=== PATIENT | male | born 1945 | race Caucasian/White ===

== ENCOUNTER 2021-06-28 03:40 | Emergency (ER) | payer MEDICARE ==
[~2021-06-28] VITALS: Ht 188 cm; Wt 108.9 kg
--- NOTE | 2021-06-28 04:02 | ED Cough/URI ---
General Chief Complaint: COVID19 Suspect/Confirmed Stated Complaint: LIGHTHEADED,BODY ACHES,COUGH Source: patient History of Present Illness Date Seen by Provider: Jun 28, 2021 Time Seen by Provider: 03:53 Initial Comments PT ARRIVES VIA POV FROM HOME C/O BODY ACHES, NON-PRODUCTIVE COUGH, CHILLS, LIGHTHEADEDNESS, GENERALIZED WEAKNESS, SLIGHT HEADACHE SYMPTOMS BEGAN 3-4 DAYS AGO HAS NOT TAKEN ANYTHING FOR HIS SYMPTOMS PT IS EATING AND DRINKING WELL. 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 HAS NOT SOUGHT CARE UNTIL TONIGHT SYMPTOMS NO DIFFERENT TONIGHT PCP: DR. DUNN Allergies and Home Medications Patient Home Medication List Home Medication List Reviewed: Yes Doxycycline Hyclate (Doxycycline Hyclate) 100 Mg Tablet, 100 MG PO BID Prescribed by: LIU JACOBS on 06/28/21 2602 Review of Systems Review of Systems Constitutional: see HPI, chills, dizziness, malaise, weakness EENTM: no symptoms reported; No nose congestion, No throat pain Respiratory: see HPI, cough; No short of breath Cardiovascular: no symptoms reported Gastrointestinal: no symptoms reported Genitourinary: no symptoms reported Musculoskeletal: see HPI (BODY ACHES) Skin: no symptoms reported Psychiatric/Neurological: See HPI, Headache Hematologic/Lymphatic: No Symptoms Reported Immunological/Allergic: no symptoms reported Past [id number]-[id number] Hx Patient Social History Tobacco Use?: No Smoking Status: Never a Smoker Substance use?: No Alcohol Use?: No Past Medical History Surgery/Hospitalization HX: BILATERAL KNEE REPLACEMENTS Surgeries: Yes Joint Replacement, Orthopedic Respiratory: No Cardiac: Yes High Cholesterol, Hypertension Neurological: No Genitourinary: No Gastrointestinal: No Musculoskeletal: Yes (BILATERAL KNEE REPLACEMENTS) Arthritis Endocrine: No HEENT: No Cancer: No Psychosocial: No Integumentary: No Blood Disorders: No Physical Exam Vital Signs - First Documented 06/28/21 03:50 Temp 37.1 Pulse 80 Resp 18 B/P (MAP) 152/99 (116) Pulse Ox 97 O2 Delivery Room Air Capillary Refill : Height: '" Weight: lbs. oz. kg; BMI Method: General Appearance: WD/WN, no apparent distress, other HEENT: PERRL/EOMI, normal ENT inspection, TMs normal, pharynx normal; No scleral icterus (R), No scleral icterus (L), No pale conjunctivae (R), No pale conjunctivae (L) Neck: normal inspection Respiratory: normal breath sounds, no respiratory distress, no accessory muscle use Cardiovascular: regular rate, rhythm, no JVD, no murmur Gastrointestinal: non tender, soft Extremities: no calf tenderness, normal capillary refill, pedal edema (1+ BILATERALLY, WITH CHRONIC VENOUS STASIS CHANGES TO BILATERAL LOWER LEGS. 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 DOES APPEAR TO HAVE ALSO DISCOLORED THE HAIR AT HAIRLINE AND MUSTACHE. THIS IS NOT PRESEENT ON HANDS OR ANY OTHER PART OF BODY. ) Progress/Results/Core Measures Suspected Sepsis SIRS Temperature: Pulse: Respiratory Rate: Blood Pressure / Mean: Results/Orders Lab Results Laboratory Tests Test 06/28/21 03:55 Range/Units Influenza Type A Antigen NEGATIVE NEGATIVE Influenza Type B Antigen NEGATIVE NEGATIVE SARS-CoV-2 RNA (RT-PCR) Negative Negative My Orders Orders - LIU JACOBS DO Covid 19 Inhouse Test (06/28/21 03:52) Isolation Central Supply Req (06/28/21 03:52) Influenza A & B Antigens (06/28/21 03:55) Coronavirus Sars-Cov-2 So 2019 (06/28/21 04:42) Vital Signs/I&O 06/28/21 06/28/21 03:50 03:50 Temp 37.1 Pulse 80 Resp 18 B/P (MAP) 152/99 (116) Pulse Ox 97 O2 Delivery Room Air Room Air Capillary Refill : Progress Note : Progress Note PLACED IN ISOLATION ROOM PPE WORN AT ALL TIMES COVID-19 TESTING DONE NO COUGH AT ANY TIME NO DYSPNEA NO HYPOXIA NO FEVER NO ABNORMAL VITALS UNEVENTFUL ER STAY. Departure Impression Primary Impression: Person under investigation for COVID-19 Disposition: 01 HOME, SELF-CARE Condition: Stable Departure-Patient Inst. Decision time for Depature: 05:00 Referrals: LIU DUNN MD (PCP/Family) Primary Care Physician Patient Instructions: COVID-19 Tests, Preventing the Spread of an Infectious Disease Add. Discharge Instructions: HOME, REST LOTS OF CLEAR LIQUIDS--WATER, BROTH, JELLO, GATORADE DIET TOLERATED TYLENOL 1 GRAM PLUS MOTRIN 800 MG 4 TIMES A DAY NEEDED FOR PAIN OR FEVER OVER THE COUNTER MUCINEX DM FOR COUGH AND CONGESTION QUARANTINE YOURSELF UNTIL YOU ARE RECHECKED AND CLEARED BY YOUR DR. NO ONE ENTERS OR LEAVES YOUR HOUSE, EXCEPT FOR DR APPOINTMENT FOLLOW UP WITH YOUR DR IN 2-3 DAYS FOR FURTHER CARE RETURN TO ER IF WORSE All discharge instructions reviewed with patient and/or family. Voiced understanding. Scripts Doxycycline Hyclate (Doxycycline Hyclate) 100 Mg Tablet 100 MG PO BID, #20 TAB 0 Refills Prov: LIU JACOBS DO 06/28/21 LIU JACOBS DO Jun 28, 2021 04:02
[2021-06-28] MEDS ORDERED: DOXY100T2 PO (05:09)
[2021-06-28 05:22] VITALS: BP 152/99
== END 2021-06-28 05:23 | disposition home or self-care (01) ==
LOC: ER 03:47
DX: Z20.822 Contact with and (suspected) exposure to COVID-19 (principal); I10 Essential (primary) hypertension
CPT/HCPCS: 87635; 87636; 87804; 99283